=== PATIENT | female | born 1980 | race Hispanic/Latino ===

== ENCOUNTER 2021-12-05 14:36 | Emergency (ER) | payer OTHER ==
--- OUTSIDE RECORDS SUMMARY | 2021-12-05 14:38 | XMS REPORT | Continuity of Care Document ---
:[address] [facility] t Address [address] [place] [address] Care Team Providers Name Role Phone Pcp, Does Not Have A Primary Care Physician Bulmaro MARC Attending Clinician LUDA Attending Clinician Unavailable Payers Payer Name Policy Type Policy Number Effective Date Expiration Date S ource Problems Condition Condition Condition Status Onset Resolution Last Treating Co mments Source Name Details Category Date Date Treatment Clinician Date No known No known Disease Unive rs active active ity of problems problems [facility] Allergies, Adverse Reactions, Alerts Allergy Allergy Status Severity Reaction(s) Onset Inactive Treating Comm ents Source Name Type Date Date Clinician Clindamy Propensi Active Diarrhea Univ ers saul ty to 7-25 ity of adverse 00:00: [place] reaction 00 Medical s Branch Codeine Propensi Active Anaphylaxis 0 Un arvin ty to 7-25 ity of adverse 00:00: [place] reaction 00 Medical s Branch Sulfa Propensi Active Hives Univers (Sulfona ty to 7-25 ity of mide adverse 00:00: [place] Antibiot reaction 00 Medica l ics) s Branch Social History Social Habit Start Date Stop Date Quantity Comments Source History [facility] o f Alcohol Frequency [place] [facility] History [facility] o f Alcohol Std [place] [facility] Drinks Branch History SD[facility] o f Alcohol Binge [place] [facility] Tobacco use and 2021-12-05 2021-12-05 Smokeless tobacco Un iversity of exposure 00:00:00 00:00:00 non-user [facility] Alcohol intake 2021-12-05 2021-12-05 Current drinker Unive rsity of 00:00:00 00:00:00 of alcohol [place] [facility] (finding) [place] Alcohol Comment 2021-12-05 2021-12-05 10x a month Universi ty of 00:00:00 00:00:00 [facility] Sex Assigned At [birth year] Universit y of 00:00:00 00:00:00 [facility] Smoking Status Start Date Stop Date Source Never smoked tobacco [facility] Medications Ordered Filled Start Stop Current Ordering Indication Dosage Frequency Signature Comments Components Source Medication Medication Date Date Medication? Clinician (SIG) Name Name traZODone Yes 150mg Take 150 Uni vers 150 mg 7-25 mg by ity of tablet 10:07: mouth at [place] [address] bedtime. Medical Branch hydrOXYzine Yes 50mg Take 50 mg Univers 50 mg 7-25 by mouth 3 ity of capsule 10:07: (three) [place] [address] times Medical daily as Branch needed for Itching. MELATONIN Yes Take by Univ ers ORAL 7-25 mouth. ity of 10:07: [address] Branch losartan Yes 100mg Take 100 Univ ers 100 mg 7-02 mg by ity of tablet 00:00: mouth in [place] [address] the Medical morning. Branch Vital Signs Vital Name Observation Time Observation Value Comments Source Systolic blood 2021-12-05 15:09:00 160 mm[Hg] Univer sity of pressure [facility] Diastolic blood 2021-12-05 15:09:00 108 mm[Hg] Unive rsity of pressure [facility] Heart rate 2021-12-05 15:02:00 90 /min [facility] Body temperature 2021-12-05 15:02:00 36.89 Yessica [facility] Respiratory rate 2021-12-05 15:02:00 18 /min [facility] Body height 2021-12-05 15:02:00 160 cm [facility] Body weight 2021-12-05 15:02:00 91.627 kg [facility] BMI 2021-12-05 15:02:00 35.78 kg/m2 [facility] Procedures This patient has no known procedures. Plan of Care Planned Activity Planned Date Details Comments Source Encounters Start End Encounter Admission Attending Care Care Encounter Source Date/Time Date/Time Type Type Clinicians Facility Department ID 2021-12-05 2021-12-05 Office TAMMY Chamberlain [id number] [facility] 09:00:00 11:23:06 Visit Francie SANDERS [id number] i ty remi GARZA [id number] Amaris CEDILLO [id number] Ar dical NAL [address] [facility] 2021-11-01 2021-11-01 Outpatient NEISHA LARES [id number] Neisha 14:45:00 14:45:00 GREG espitia 2021-10-25 2021-10-25 Outpatient NEISHA LARES [id number] Neisha 14:30:00 14:30:00 GREG espitia Results Test Description Test Time Test Comments Results Result Comments Source CULTURE, URINE 2021-11-10 SPECIMEN NUMBER: 10:01:19 [id number] CULTURE, URINE SPECIMEN NUMBER: [id number] SPECIMEN COMMENT: URINE SOURCE: URINE REPORT STATUS: FINAL FINAL REPORT: 11/10/2021 NO GROWTH AFTER 36 HOURS INCUBATION CBC W/AUTO DIFF WITH PLATELETS 2021-11-09 07:00:14 Test Item Value Reference Range Interpretation Comme nts WBC (test code = 1001) 8.6 K/UL 3.5-11.0 RBC (test code = 1002) 4.70 M/UL 3.80-5.40 HEMOGLOBIN (test code = 12.3 G/DL 11.5-15.5 1003) HEMATOCRIT (test code = 37.7 % 34.0-45.0 1004) MCV (test code = 1005) 80.2 fL 80.0-99.0 MCH (test code = 1006) 26.2 PG 25.0-33.0 MCHC (test code = 1007) 32.6 G/DL 31.0-36.0 RDW (test code = 1038) 13.8 % 11.5-15.0 NEUTROPHILS (test code = 63.1 % 1008) LYMPHOCYTES (test code = 24.7 % 1010) MONOCYTES (test code = 8.3 % 1011) EOSINOPHILS (test code = 2.6 % 1012) BASOPHILS (test code = 0.7 % 1013) IMMATURE GRANULOCYTES (test 0.6 % code = 1036) NUCLEATED RBCS (test code = 0.0 /100 WBC'S See_Comment [Automated message] The 1065) system which ge nerated this result transmit nelly reference range: 0.0. The reference range was not u sed to interpret this result as normal/abnormal . PLATELET COUNT (test code = 413 K/UL 130-400 H 1015) ABSOLUTE NEUTROPHILS (test 5.43 K/UL 1.50-7.50 code = 1066) ABSOLUTE LYMPHOCYTES (test 2.12 K/UL 1.00-4.00 code = 1067) ABSOLUTE MONOCYTES (test 0.71 K/UL 0.20-1.00 code = 1068) ABSOLUTE EOSINOPHILS (test 0.22 K/UL 0.00-0.50 code = 1040) ABSOLUTE BASOPHILS (test 0.06 K/UL 0.00-0.20 code = 1069) ABS IMMATURE GRANULOCYTES 0.05 K/UL 0.00-0.10 (test code = 1020) ABS NUCLEATED RBCS (test 0.00 K/UL 0.00-0.11 UNLESS OTHERWISE code = 48074) INDICATED, ALL TESTING PERFORMED [facility] [employer]. [address] [place] [id number] HOT BREAD BAKER: Rosalee FISHER NUMBER [id number] CAP ACCREDITATION N O. [id number] HEMOGLOBIN [id number] 06:19:30 Test Item Value Reference Range Interpretation Comments HEMOGLOBIN A1c (test 5.8 % 4.2-5.6 H UNLESS OTHERWISE code = 67545) INDICATED, ALL TESTING PERFORMED [facility] [employer]. [address] [place] [address] [id number] 4 LABORATORY DIRE CTOR: Rosalee NEWELLIA NUMBER [id number] [place] [id number] COMPREHENSIVE METABOLIC [id number] 04:26:24 Test Item Value Reference Range Interpretation Comments GLUCOSE (test code = 100 MG/DL 70-99 H 2216) BUN (test code = 12 MG/DL 6-20 2207) CREATININE (test 0.78 MG/DL 0.60-1.30 code = 2213) eGFR (2020 CKD-EPI) 97 ML/MIN/1.73 >60 (test code = 82216) CALC BUN/CREAT (test 15 RATIO 6-28 code = 223) SODIUM (test code = 140 MEQ/L 064-533 5853) POTASSIUM (test code 4.4 MEQ/L 3.5-5.4 = 2227) CHLORIDE (test code 102 MEQ/L 95-107 = 2214) CARBON DIOXIDE (test 27 MEQ/L 19-31 code = 2205) CALCIUM (test code = 9.5 MG/DL 8.5-10.5 2208) PROTEIN, TOTAL (test 7.7 G/DL 6.1-8.3 code = 2228) ALBUMIN (test code = 4.6 G/DL 3.5-5.2 2200) CALC GLOBULIN (test 3.1 G/DL 1.9-3.7 code = 2239) CALC A/G RATIO (test 1.5 RATIO 1.0-2.6 code = 2233) BILIRUBIN, TOTAL 0.3 MG/DL See_Comment [Automated message] (test code = 2206) The syste m which generated this result transmit nelly reference range : <=1.2. The refe rence range was not u sed to interpret th is result as normal/abnormal . ALKALINE PHOSPHATASE 103 U/L 40-113 (test code = 2203) AST (test code = 32 U/L 9-40 2217) ALT (test code = 27 U/L 5-40 2218) LIPID [id number] 04:26:24 Test Item Value Reference Range Interpretation Comments CHOLESTEROL (test 251 MG/DL <200 H code = 2210) TRIGLYCERIDES (test 181 MG/DL <150 H code = 2232) HDL CHOLESTEROL (test 67 MG/DL >39 code = 222) CALC LDL CHOL (test 152 MG/DL <100 H NOTE: C ALCULATED LDL code = 2237) IS BASED ON CHAYITO-ELISE METHOD WHICHINCLUDES ADJUSTABLE TRIGLYCERIDE:VL DL CHOLESTEROL RAT IO.THIS FACTOR VARIES B Y MEASURED TRIGLY CERIDE AND NON-HDLCHOL ESTEROL CONCENTRATIONS WITH INCREASED CALCU LATED LDL SEENIN HIGH ER TRIGLYCERIDE OR LOWER NON-HDL SPECIME NS. FOR MOREINFORMATION , SEE CLIENT ANNOUNCE MENT AT [email or web address] [email or web address] RATIO LDL/HDL 2.27 RATIO <3.22 (test code = 2238)
--- NOTE | 2021-12-05 16:09 | RAD REPORT ---
EXAM DESCRIPTION: RAD - Chest Single View - 12/05/2021 3:42 pm CLINICAL HISTORY: CHEST PAIN TECHNIQUE: AP portable chest image was obtained 12/05/2021 3:42 pm . FINDINGS: Lungs are clear. Heart and vasculature are normal. No measurable pleural effusion and no p neumothorax. No acute bony abnormality seen. No acute aortic findings suspected. IMPRESSION: No acute cardiopulmonary process.
[2021-12-05 16:32] LABS: Absolute Lymphocytes (CBC) 2.2 K/uL (0.7-4.9); Hematocrit 34.6 % (36.0-45.0); Lymphocytes % 26.2 % (15.3-44.8); MCV 78.2 fL (80-100); MPV 6.7 fL (7.6-11.3); RBC Red Blood Cell Count 4.42 M/uL (3.86-4.86)
[2021-12-05 16:37] LABS: Protime INR 1.08
[2021-12-05 16:41] LABS: Urine Blood Trace-intact (Negative); Urine Glucose Negative (Negative); Urine Protein Negative (Negative); Urine Specific Gravity 1.025 (1.005-1.030); Urine pH 6.5 (5.0-7.0)
[2021-12-05 16:52] LABS: ALT/SGPT 39 U/L (12-78); AST/SGOT 29 U/L (15-37); Albumin 3.7 g/dL (3.4-5.0); Alkaline Phosphatase 92 U/L (45-117); BUN Blood Urea Nitrogen 9 mg/dL (7-18); Bicarbonate 23 mmol/L (21-32); Bilirubin Direct < 0.1 mg/dL (0-0.2); Bilirubin Total 0.3 mg/dL (0.2-1.0); Glomerular Filtration Rate 110 ml/min (=/>90); Glucose Level 152 mg/dL (74-106); NT PRO-BNP 37 pg/mL (<125); Potassium 3.8 mmol/L (3.5-5.1); Protein, Total 7.5 g/dL (6.4-8.2); Sodium Level 141 mmol/L (136-145); Troponin High Sensitivity 11.8 pg/mL (<58.9)
[2021-12-05 16:52] LABS: Urine Specific Gravity/Preg 1.025 (1.005-1.030)
[2021-12-05] MEDS ORDERED: METOPROLOL TAR 25 MG TAB ONE (20:16)
[2021-12-05] MEDS ORDERED: ASPIRIN EC 81 MG TAB PO ONE (20:16)
--- NOTE | 2021-12-05 21:28 | EDPHYS ---
Physician Documentation [facility] Name: Violeta Marmolejo Age: 41 yrs Sex: Female : 1980 Arrival Date: 12/05/2021 Time: 14:38 Bed Treatment Private MD: BRIGIDA Physician Carloz Louise HPI: 12/05 15:25 This 41 yrs old Female presents to ER via Ambulatory with complaints of Arm cp Pain, High Blood Pressure. 15:25 The patient has elevated blood pressure and discovered this at home, with a home cp device, at a physician's office, and sent to the emergency department for evaluation. Onset: The symptoms/episode began/occurred 4 day(s) ago. 15:25 Associated signs and symptoms: Pertinent positives: right side chest pain and right arm cp pain, Pertinent negatives: dizziness, headache, lightheadedness, visual changes, vomiting, weakness. Severity of symptoms: in the emergency department the blood pressure is improved, mildly, 162 mm Hg. Patient reports she was referred to ED for evaluation of elevated blood pressure. Patient reports history of htn and taking prescribed Losartan 100 mg daily. Patient reports pain to right side chest and right arm today. BUTTON SEWER HAND: 15:22 LMP N/A - Irregular menses ap3 Historical: - Allergies: 15:19 Codeine; ap3 15:19 Sulfa (Sulfonamide Antibiotics); ap3 15:19 Clindamycin; ap3 - Home Meds: 15:19 losartan 100 mg oral tab 1 tab once daily [Active]; Hydroxyzine Pamoate Oral [Active]; ap3 Trazodone Oral [Active]; - PMHx: 15:19 Hypertensive disorder; Bipolar disorder; Anxiety; ap3 - Immunization history:: Client reports receiving the 2nd dose of the Covid vaccine. - Social history:: Smoking status: Patient denies any tobacco usage or history of. Patient uses alcohol, weekly. ROS: 15:30 Constitutional: Negative for body aches, chills, fever, poor PO intake. cp 15:30 Eyes: Negative for injury, pain, redness, and discharge. cp 15:30 ENT: Negative for drainage from ear(s), ear pain, sore throat, difficulty swallowing, difficulty handling secretions. 15:30 Cardiovascular: Positive for chest pain, Negative for edema, palpitations. 15:30 Respiratory: Negative for cough, shortness of breath, wheezing. 15:30 Abdomen/GI: Negative for abdominal pain, vomiting, diarrhea, constipation. 15:30 Back: Negative for pain at rest, pain with movement. 15:30 : Negative for urinary symptoms. 15:30 Skin: Negative for rash. 15:30 Neuro: Negative for altered mental status, dizziness, headache, numbness, syncope, weakness. 15:30 All other systems are negative. Exam: 15:32 ECG was reviewed by the Attending Physician. cp 15:35 Constitutional: The patient appears in no acute distress, alert, awake, cp non-diaphoretic, non-toxic, well developed, well nourished, obese. 15:35 Head/Face: Normocephalic, atraumatic. cp 15:35 Eyes: Periorbital structures: appear normal, Conjunctiva: normal, no exudate, no injection, Sclera: no appreciated abnormality, Lids and lashes: appear normal, bilaterally. 15:35 ENT: External ear(s): are unremarkable, Nose: is normal, Mouth: Lips: moist, Oral mucosa: pink and intact, moist, Posterior pharynx: is normal, airway is patent, no erythema, no exudate. 15:35 Neck: C-spine: vertebral tenderness, is not appreciated, crepitus, is not appreciated, ROM/movement: is normal, is supple, without pain, no range of motions limitations. 15:35 Chest/axilla: Inspection: normal. 15:35 Cardiovascular: Rate: normal, Rhythm: regular, Pulses: Pulses are 2+ in right radial artery and left radial artery. Edema: is not appreciated, JVD: is not appreciated. 15:35 Respiratory: the patient does not display signs of respiratory distress, Respirations: normal, no use of accessory muscles, no retractions, labored breathing, is not present, Breath sounds: are clear throughout, no decreased breath sounds, no stridor, no wheezing. 15:35 Abdomen/GI: Inspection: abdomen appears normal, Palpation: abdomen is soft and non-tender, in all quadrants. 15:35 Back: pain, is absent, ROM is normal. 15:35 Skin: cellulitis, is not appreciated, no rash present. 15:35 Neuro: Orientation: to person, place \T\ time. Mentation: is normal, Cerebellar function: is grossly normal, Motor: moves all fours, strength is normal, Sensation: is normal. Vital Signs: 15:16 Pulse 91; Resp 18; Temp 98.6; Pulse Ox 98% on R/A; Weight 91.63 kg; Height 5 ft. 3 in. ap3 (160.02 cm); 19:52 BP 162 / 84; bh1 20:49 BP 142 / 84; Pulse 70; Resp 16; Pulse Ox 100% on R/A; ll3 15:16 Body Mass Index 35.78 (91.63 kg, 160.02 cm) ap3 MDM: 19:52 Patient medically screened. cp 21:27 Data reviewed: vital signs, nurses notes, lab test result(s), EKG, radiologic studies, cp plain films. 21:27 Test interpretation: by ED physician or midlevel provider: ECG, plain radiologic cp studies. Counseling: I had a detailed discussion with the patient and/or guardian regarding: the historical points, exam findings, and any diagnostic results supporting the discharge/admit diagnosis, the presence of at least one elevated blood pressure reading (>120/80) during this emergency department visit, lab results, radiology results, the need for outpatient follow up, for definitive care, a family practitioner, to return to the emergency department if symptoms worsen or persist or if there are any questions or concerns that arise at home. Response to treatment: the patient's symptoms have markedly improved after treatment, VSS. Blood pressure and pain improved. EKG and troponin negative for STEMI. Low suspicion for cardiac cause of pain. Will discharge to home to f/u with primary physician. 12/05 15:19 Order name: Basic Metabolic Panel; Complete Time: 18:47 cp 12/05 18:47 Interpretation: Normal except: CL 110; GLUC 152. cp 12/05 15:19 Order name: CBC with Diff; Complete Time: 18:47 cp 12/05 19:53 Interpretation: Normal except: HGB 11.5; HCT 34.6; MCV 78.2; MCH 26.0; MPV 6.7. cp 12/05 15:19 Order name: LFT's; Complete Time: 18:47 cp 12/05 19:53 Interpretation: Normal except: GLOB 3.8; A/G 1.0. cp 12/05 15:19 Order name: Magnesium; Complete Time: 18:47 cp 12/05 15:19 Order name: NT PRO-BNP; Complete Time: 18:47 cp 12/05 15:19 Order name: PT-INR; Complete Time: 18:47 cp 12/05 15:19 Order name: Troponin HS; Complete Time: 18:47 cp 12/05 15:19 Order name: XRAY Chest (1 view); Complete Time: 18:47 cp 12/05 16:42 Order name: Urine Dipstick-Ancillary; Complete Time: 18:47 EDMS 12/05 16:42 Order name: Urine --Ancillary (enter results); Complete Time: 18:47 dh3 12/05 19:54 Order name: Troponin High Sensitivity; Complete Time: 21:47 cp 12/05 15:19 Order name: EKG; Complete Time: 15:20 cp 12/05 15:19 Order name: EKG - Nurse/Tech; Complete Time: 16:31 cp 12/05 15:19 Order name: IV Saline Lock; Complete Time: 16:31 cp 12/05 15:19 Order name: Labs collected and sent; Complete Time: 16:31 cp 12/05 15:19 Order name: O2 Per Protocol; Complete Time: 16:31 cp 12/05 15:19 Order name: Urine Dipstick-Ancillary (obtain specimen); Complete Time: 16:43 cp 12/05 15:19 Order name: Urine Test (obtain specimen); Complete Time: 16:42 cp EC:32 Rate is 87 beats/min. Rhythm is regular. CT interval is normal. QRS interval is normal. cp QT interval is normal. Interpreted by me. Reviewed by me. Administered Medications: 20:10 Drug: Metoprolol 25 mg Route: PO; ll3 21:53 Follow up: Response: No adverse reaction ll3 20:10 Drug: Aspirin 81 mg Route: PO; ll3 21:53 Follow up: Response: No adverse reaction ll3 21:24 Not Given (Patient Refused): Ketorolac 15 mg IVP once ll3 Disposition Summary: 12/05/21 21:27 Discharge Ordered Location: Home cp Problem: new cp Symptoms: have improved cp Condition: Stable cp Diagnosis - Hypertensive heart disease without heart failure cp - Pain in right arm cp - Chest pain, unspecified cp Followup: cp - With: Private Physician - When: 1 - 2 days - Reason: Recheck today's complaints Discharge Instructions: - Discharge Summary Sheet cp - Nonspecific Chest Pain, Adult cp - Hypertension, Adult cp - Musculoskeletal Pain cp - Aspirin and Your Heart cp - How to Take Your Blood Pressure cp Forms: - Medication Reconciliation Form cp - Thank You Letter cp - Antibiotic Education cp - Prescription Opioid Use cp Prescriptions: - Ibuprofen 800 mg Oral Tablet - take 1 tablet by ORAL route every 8 hours As needed take with food; 30 tablet; cp Refills: 0, Product Selection Permitted - Metoprolol Tartrate 25 mg Oral Tablet - take 1 tablet by ORAL route 2 times per day with a meal; 20 tablet; Refills: 0, cp Product Selection Permitted Signatures: Dispatcher [employer] EDCarloz Briones PA PA cp Prokisch, Amanda, RN RN ap3 Bronwyn Villanueva RN RN ll3 Diane Perkins PA PA sb3
--- NOTE | 2021-12-05 21:28 | ER ---
Nurse's Notes [facility] Name: Violeta Marmolejo Age: 41 yrs Sex: Female : 1980 Arrival Date: 12/05/2021 Time: 14:38 Bed Treatment Private MD: Diagnosis: Hypertensive heart disease without heart failure;Pain in right arm;Chest pain, unspecified Presentation: 12/05 15:16 Chief complaint: Patient states: she has been having high blood pressure for approx 4 ap3 days. patient did see her OBGYN this morning who suggested she come get evaluated by the ED. Coronavirus screen: At this time, the client does not indicate any symptoms associated with coronavirus-19. Ebola Screen: No symptoms or risks identified at this time. Initial Sepsis Screen: Does the patient meet any 2 criteria? No. Patient's initial sepsis screen is negative. Does the patient have a suspected source of infection? No. Patient's initial sepsis screen is negative. Risk Assessment: Do you want to hurt yourself or someone else? Patient reports no desire to harm self or others. Onset of symptoms was December 05, 2021 at 15:18. 15:16 Method Of Arrival: Ambulatory ap3 15:16 Acuity: ALEC 3 ap3 Triage Assessment: 15:21 General: Appears comfortable, Behavior is cooperative, anxious. Pain: Complains of pain ap3 in right shoulder Pain began gradually. Neuro: Level of Consciousness is awake, alert, obeys commands, Oriented to person, place, time, situation, Appropriate for age Speech is normal, Facial symmetry appears normal. Cardiovascular: Patient's skin is warm and dry. Respiratory: Airway is patent Respiratory effort is even, unlabored, Respiratory pattern is regular, symmetrical. 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 - Social history:: Smoking status: Patient denies any tobacco usage or history of. Patient uses alcohol, weekly. Screenin:21 Abuse screen: Denies threats or abuse. Nutritional screening: No deficits noted. ap3 Tuberculosis screening: No symptoms or risk factors identified. 21:52 Fall Risk No fall in past 12 months (0 pts). No secondary diagnosis (0 pts). IV access ll3 (20 points). Ambulatory Aid- None/Bed Rest/Nurse Assist (0 pts). Gait- Normal/Bed Rest/Wheelchair (0 pts) Mental Status- Oriented to own ability (0 pts). Total Chew Fall Scale indicates No Risk (0-24 pts). Assessment: 20:49 Reassessment: No changes from previously documented assessment. Patient and/or family ll3 updated on plan of care and expected duration. Pain level reassessed. Patient is alert, oriented x 3, equal unlabored respirations, skin warm/dry/pink. Vital Signs: 15:16 Pulse 91; Resp 18; Temp 98.6; Pulse Ox 98% on R/A; Weight 91.63 kg; Height 5 ft. 3 in. ap3 (160.02 cm); 19:52 BP 162 / 84; bh1 20:49 BP 142 / 84; Pulse 70; Resp 16; Pulse Ox 100% on R/A; ll3 15:16 Body Mass Index 35.78 (91.63 kg, 160.02 cm) ap3 ED Course: 14:38 Patient arrived in ED. rg4 15:10 Carloz Rinaldi PA is PHCP. cp 15:10 Carloz Louise MD is Attending Physician. cp 15:19 Triage completed. ap3 15:22 Arm band placed on left wrist. ap3 15:44 XRAY Chest (1 view) In Process Unspecified. EDMS 16:24 Initial lab(s) drawn, by me, sent to lab. Inserted saline lock: 20 gauge in right dh3 wrist, using aseptic technique. Blood collected. 20:14 Bronwyn Villanueva, TONJA is Primary Nurse. ll3 21:52 No provider procedures requiring assistance completed. IV discontinued, intact, ll3 bleeding controlled, No redness/swelling at site. Pressure dressing applied. 21:53 Patient has correct armband on for positive identification. Bed in low position. Call ll3 light in reach. Side rails up X 1. Administered Medications: 20:10 Drug: Metoprolol 25 mg Route: PO; ll3 21:53 Follow up: Response: No adverse reaction ll3 20:10 Drug: Aspirin 81 mg Route: PO; ll3 21:53 Follow up: Response: No adverse reaction ll3 21:24 Not Given (Patient Refused): Ketorolac 15 mg IVP once ll3 Medication: 21:52 VIS not applicable for this client. ll3 Outcome: 21:27 Discharge ordered by . darian 21:52 Discharged to home ambulatory. ll3 21:52 Condition: stable 21:52 Discharge instructions given to patient, Instructed on discharge instructions, follow up and referral plans. medication usage, Demonstrated understanding of instructions, follow-up care, medications, Prescriptions given X 2. 21:53 Patient left the ED. ll3 Signatures: Dispatcher [employer] EDMS Carloz Rinaldi PA PA cp Garcia, Rubi rg4 Anni De Los Santos 3 Leydi Mckeon RN RN ap3 Bronwyn Villanueva RN RN 3 Meme Rollins RN RN 1
[2021-12-05] MEDS ORDERED: KETOROLAC 30 MG/ML INJ ONE (21:31)
[2021-12-05 22:19] VITALS: TEMP 98.6
[2021-12-05 22:24] VITALS: BP 142/84; O2SAT 100
--- NOTE | 2021-12-06 12:38 | EKG ---
Test Date: 2021-12-05 Test Time: 15:28:42 Crossword Puzzle Maker: SAIGE MEASUREMENT RESULTS: Intervals: Rate: 87 IN: 156 QRSD: 86 QT: 372 QTc: 447 [place]: P: 63 IN: 156 QRS: 61 T: 20 INTERPRETIVE STATEMENTS: Normal sinus rhythm Normal ECG No previous ECG available for comparison Electronically Signed On 12-06-21 12:37:06 CDT by Ilya He
== END 2021-12-05 21:53 | disposition home or self-care (01) ==
LOC: ER 14:36
DX: I11.9 Hypertensive heart disease without heart failure (principal); M79.601 Pain in right arm; I10 Essential (primary) hypertension; Z88.5 Allergy status to narcotic agent; Z88.2 Allergy status to sulfonamides; Z88.3 Allergy status to other anti-infective agents
CPT/HCPCS: 36415; 71045; 80048; 80076; 81003; 81025; 83735; 83880; 84484; 85025; 85610; 93005; 99284